=== PATIENT | male | born 1940 | race Caucasian/White ===

== ENCOUNTER 2021-04-05 19:26 | Emergency (ER) | payer MEDICARE, OTHER ==
[~2021-04-05] VITALS: Ht 180.3 cm; Wt 81.8 kg
[2021-04-05] MEDS ORDERED: ondansetron/PF 4mg/2ml inj IV ONE (19:30)
[2021-04-05] MEDS ORDERED: normal saline 1000ML IV soln IVB ONE (19:30)
[2021-04-05] MEDS ORDERED: ALBUTEROL INHALER 1 PUFF/90 MCG INHALER IH PRN (19:30)
[2021-04-05 20:10] LABS: D-DIMER 0.66 MG/L FEU (0-0.50)
[2021-04-05 20:13] LABS: ALANINE AMINOTRANSFERASE 43 U/L (12-78); ALBUMIN 3.5 G/DL (3.4-5.0); ALBUMIN/GLOBULIN RATIO 0.9 (1.1-1.5); ALKALINE PHOSPHATASE 193 IU/L (46-116); ANION GAP 9 (8-16); ASPARTATE AMINO TRANSFERASE 45 U/L (10-37); BILIRUBIN,TOTAL 0.5 MG/DL (0.1-1.0); BLOOD UREA NITROGEN 17 MG/DL (7-18); BUN/CREATININE RATIO 16.8 (5.4-32.0); C-REACTIVE PROTEIN 6.71 MG/DL (0.0-0.5); CALCIUM 8.2 MG/DL (8.5-10.1); CHLORIDE 102 MMOL/L (99-107); CREATININE 1.01 MG/DL (0.60-1.10); GLUCOSE 103 MG/DL (70-104); POTASSIUM 3.8 MMOL/L (3.5-5.1); SODIUM 137 MMOL/L (135-145); TOTAL CARBON DIOXIDE 26.5 MMOL/L (24-32); TOTAL PROTEIN 7.6 G/DL (6.4-8.2); eGFR 71 ML/MIN
[2021-04-05] MEDS ORDERED: CASIRIVIMAB/IMDEVIMAB inject. 10 ML in normal saline 100ml IV soln 100 ML IV ONE (20:30)
--- NOTE | 2021-04-05 20:45 | NUR ---
80 yo CM presents to ED for c/o of confusion and flu-like symptoms. Pt is alert and oriented to person, place, and to the reason as to why he is here. Pt states that he took an at home COVID-19 test, and the results came back positive. Pt is currently unvaccinated. Pt is sating at 97% on Room AIR, displays non labored breathing and even chest rise and fall. Lungs sounds are clear. S1 and S2 heart sounds. Abdomen is soft and non distended. Bowel sounds are hypoactive at this time. Radial pulse palpable (2+). Call michelle is within reach. Side rails are up, bed lock and in the lowest position. Pt's son in law is at bedside. Will continue to monitor with frequent nurse checks.
[2021-04-05 20:51] LABS: BASOPHILS % (AUTO) 0.4 % (0-1); EOSINOPHILS % (AUTO) 0 % (0-6); HEMATOCRIT 39.8 % (42.0-52.0); HEMOGLOBIN 13.5 g/dl (14.0-17.9); LYMPHOCYTES # (AUTO) 0.7 X10'3 (1.1-4.8); LYMPHOCYTES % (AUTO) 18.2 % (21-51); MEAN CORPUSCULAR HEMOGLOBIN 30.9 PG (27.0-31.0); MEAN CORPUSCULAR HGB CONC 33.9 g/dL (33.0-36.5); MEAN PLATELET VOLUME 8.4 FL (7.4-10.4); MONOCYTES # (AUTO) 0.4 X10'3 (0-0.9); MONOCYTES % (AUTO) 9.4 % (2-12); NEUTROPHILS # (AUTO) 2.8 X10'3 (1.8-7.7); PLATELET COUNT 120 X10'3 (140-440); RED BLOOD COUNT 4.38 X10'6 (4.70-6.10); RED CELL DISTRIBUTION WIDTH 13.3 % (11.5-14.5); WHITE BLOOD COUNT 3.8 X10'3 (4.5-11.0)
--- NOTE | 2021-04-05 20:52 | NUR ---
Currently awaiting for COVID-19 medication from pharmacy. Once this medication has been administered, will monitor patient for 60 mins.
--- NOTE | 2021-04-05 21:06 | NUR ---
[facility] [phone]
[2021-04-05] MEDS ORDERED: ALBU6.7H9 INH (23:35)
[2021-04-06 01:09] VITALS: BP 156/76
== END 2021-04-06 01:04 | disposition home or self-care (01) ==
LOC: ER 19:27
DX: U07.1 COVID-19 (principal); R11.2 Nausea with vomiting, unspecified; R05.9 Cough, unspecified; R41.0 Disorientation, unspecified; Z79.899 Other long term (current) drug therapy
CPT/HCPCS: 36415; 71045; 80053; 84145; 85025; 85379; 86140; 96361; 96374; 99284; J2405; J7030; M0243; Q0244